=== PATIENT | male | born 1960 | race Caucasian/White ===

== ENCOUNTER 2017-05-22 13:37 | Emergency (ER) | payer OTHER ==
--- NOTE | 2017-05-22 13:54 | CPEKG ---
Heart Rate: 60 RR Interval: 1000 P-R Interval: 180 QRSD Interval: 96 QT Interval: 484 QTC Interval: 484 P Mclean: 37 QRS Mclean: 69 T Wave Mclean: 65 EKG Severity - ABNORMAL ECG - EKG Impression: SINUS RHYTHM EKG Impression: LEFT VENTRICULAR HYPERTROPHY EKG Impression: BORDERLINE INFERIOR Q WAVES EKG Impression: BORDERLINE PROLONGED QT INTERVAL Electronically Signed By: Rony Gutierrez 22-May-2017 15:49:32
[2017-05-22] MEDS ORDERED: NS 1,000 ML IV ONE (14:02)
--- NOTE | 2017-05-22 14:07 | EDPHY ---
H & P Time Seen by Provider: 05/22/17 13:38 HPI/ROS: HPI Fainted. 57-year-old male by private vehicle with his significant other. This patient comes from [place] by ambulance. He was in a hot bath tub with his . He was in the bathtub for a extended period of time. He got out of the bathtub and felt very lightheaded. He had 2 sit down on the floor. He tried to get up 2 times and was unable to do so because of this lightheadedness. He then had a brief episode of jerking of his head and chest and lost consciousness for about 30 sec. He then woke up. His who was at his side is a veterinary physician. He was alert and asked what happened. No postictal state. No associated headache, shortness of breath, chest pain, palpitations, loss of sensation or weakness in his extremities. He is feeling better now. He reports that for the last week he has had a bad upper respiratory infection with nasal congestion, cough, and loss of appetite. He reports that he has not been eating or drinking much over this period of time. He does take Viagra. He and his state that last Viagra use was over 24 hr ago. Other medication includes aspirin daily. ROS: Constitutional: No fever, no chills. As above. Eyes: No discharge. No changes in vision. ENT: No sore throat. As above. Respiratory: As above. No shortness of breath. Cardiac: No chest pain, no palpitations. Gastrointestinal: No abdominal pain, no vomiting, no diarrhea. Genitourinary: No hematuria. No dysuria or increased frequency with urination. Musculoskeletal: No back pain. No neck pain. No myalgias or arthralgias. Skin: No rashes. Neurological: No headache. No focal weakness or altered sensation. Past medical history: He denies any significant past medical history. Medications as above. Social history: Nonsmoker. Drinks alcohol socially. Here with his . Physical Exam: General Appearance: Alert, no distress. This patient is responding to questions appropriately and in full sentences. This patient appears well- hydrated and well-nourished. Eyes: Pupils equal and round no pallor or injection. No lid edema, erythema or injection. ENT, Mouth: Mucous membranes are moist. The pharyngeal tissues are unremarkable. No edema or swelling. No asymmetry suggestive of abscess. No erythema or exudates. No tongue lacerations or abrasions. Respiratory: There are no retractions, lungs are clear to auscultation with good air movement bilaterally. Cardiovascular: Regular rate and rhythm. No murmur. Gastrointestinal: Abdomen is soft and nontender, no masses, bowel sounds normal. No focal tenderness at McBurney's point. No Pete sign. Neurological: Motor sensory function is grossly intact. Cranial nerves are normal. Gait is normal. Skin: Warm and dry, no rashes. Musculoskeletal: Neck is supple and nontender. Extremities are symmetrical. All joints range without pain or impingement. Psychiatric: No agitation. No depression. Database: EKG: EKG time is 1:53 p.m.; EKG shows a narrow complex normal sinus rhythm with a ventricular rate of 60. Q-waves noted in the inferior leads. Left ventricular hypertrophy noted. The DE, QRS, QT intervals are within normal limits. There are no ST-T wave changes indicative of ischemic or injury pattern. No evidence of right heart strain. Interpreted by me. Imaging: Procedures: Emergency department course: IV established by EMS. He has received 1.5 L of fluid during transport by EMS. His vital signs were reviewed. Blood pressure is 114/80. security monitor shows a narrow complex sinus rhythm with a ventricular rate of 65. Pulse oximetry 95% on room air. The patient is afebrile. 2:50 p.m., patient re-evaluated. Resting comfortably at this time. Vital signs reviewed and are normal. Results of his EKG discussed. Concern about left ventricular hypertrophy discussed. I discussed the results of his blood work and elevated creatinine. He feels comfortable going home. I did discuss admission for observation. He declines this. His presentation is consistent with a vasovagal syncope. I will have him follow up with his primary care physician or our cardiology group for re-evaluation and to get an echocardiogram. He also has been instructed to follow up for repeat BUN and creatinine next week. He and his are in agreement with this plan. Return to emergency department precautions discussed. All their questions were answered. The patient was discharged in good condition. Differential Diagnosis: The differential diagnosis on this patient includes but is not limited to vasovagal syncope. Subarachnoid hemorrhage, pulmonary embolism, acute coronary syndrome, arrhythmia, seizure unlikely. This represents a partial list of diagnoses considered. These considerations are based on history, physical exam , past history, reassessment and diagnostic testing. Constitutional: Initial Vital Signs Temperature (C) 36.4 C 05/22/17 14:15 Heart Rate 63 05/22/17 14:15 Respiratory Rate 18 05/22/17 14:15 Blood Pressure 129/79 H 05/22/17 14:15 O2 Sat (%) 98 05/22/17 14:15 O2 Delivery Mode Room Air Allergies/Adverse Reactions: No Known Allergies Allergy (Unverified 05/22/17 14:15) Home Medications: Medication Instructions Recorded Aspirin 05/22/17 Viagra 05/22/17 Medical Decision Making - Data Points Laboratory Results: Laboratory Results 05/22/17 13:45 05/22/17 13:45 05/22/17 05/22/17 13:45 13:45 WBC 6.12 10^3/uL 10^3/uL (3.80-9.50) RBC 4.95 10^6/uL 10^6/uL (4.40-6.38) Hgb 15.2 g/dL g/dL (13.7-17.5) Hct 45.2 % % (40.0-51.0) MCV 91.3 fL fL (81.5-99.8) MCH 30.7 pg pg (27.9-34.1) MCHC 33.6 g/dL g/dL (32.4-36.7) RDW 12.5 % % (11.5-15.2) Plt Count 376 10^3/uL 10^3/uL (150-400) MPV 9.9 fL fL (8.7-11.7) Neut % (Auto) 51.8 % % (39.3-74.2) Lymph % (Auto) 33.8 % % (15.0-45.0) [place] % (Auto) 13.1 % H % (4.5-13.0) Eos % (Auto) 0.3 % L % (0.6-7.6) Baso % (Auto) 0.7 % % (0.3-1.7) Nucleat RBC Rel Count 0.0 % % (0.0-0.2) Absolute Neuts (auto) 3.17 10^3/uL 10^3/uL (1.70-6.50) Absolute Lymphs (auto) 2.07 10^3/uL 10^3/uL (1.00-3.00) Absolute Monos (auto) 0.80 10^3/uL 10^3/uL (0.30-0.80) Absolute Eos (auto) 0.02 10^3/uL L 10^3/uL (0.03-0.40) Absolute Basos (auto) 0.04 10^3/uL 10^3/uL (0.02-0.10) Absolute Nucleated RBC 0.00 10^3/uL 10^3/uL (0-0.01) Immature Gran % 0.3 % % (0.0-1.1) Immature Gran # 0.02 10^3/uL 10^3/uL (0.00-0.10) Sodium 143 mEq/L mEq/L (135-145) Potassium 4.5 mEq/L mEq/L (3.5-5.2) Chloride 100 mEq/L mEq/L (97-110) Carbon Dioxide 23 mEq/l mEq/l (22-31) Anion Gap 20 mEq/L H mEq/L (8-16) BUN 17 mg/dL mg/dL (7-23) Creatinine 1.4 mg/dL H mg/dL (0.7-1.3) Estimated GFR 52 Glucose 132 mg/dL H mg/dL (70-100) Calcium 10.0 mg/dL mg/dL (8.5-10.4) Medications Given: Discontinued Medications Sodium Chloride (Ns) 1,000 mls @ 0 mls/hr IV EDNOW ONE; Wide Open PRN Reason: Protocol Stop: 05/22/17 14:03 Last Admin: 05/22/17 14:10 Dose: 1,000 mls Departure - Departure Disposition: Home, Routine, Self-Care Clinical Impression: Syncope Condition: Good Instructions: Syncope (ED) Additional Instructions: Read and follow provided instructions. Follow-up with your primary care physician or our cardiology group early this week for re-evaluation and scheduling of an echocardiogram to evaluate your heart function. As discussed. Your EKG indicates left ventricular hypertrophy. You should also have your kidney function rechecked by your primary care physician within the next week to 10 days. Do not take medications like Viagra which can lower your blood pressure prior to taking a hot bath or using a hot tub. Keep well hydrated. Return to the emergency department for chest pain, shortness of breath, headache , difficulty breathing, lightheadedness, fainting or other serious concerns. Referrals: Patient,NotPresent [Unknown] - As per Instructions Alex Sánchez MD [Medical Doctor] - As per Instructions
[2017-05-22 14:21] LABS: PLATELET COUNT 376 10^3/uL (150-400)
[2017-05-22 14:43] VITALS: PULSE 67; O2SAT 96
[2017-05-22 15:23] VITALS: BP 130/79; RESP 15; TEMP 97.9
== END 2017-05-22 15:23 | disposition home or self-care (01) ==
DX: R55 Syncope and collapse (principal); E86.9 Volume depletion, unspecified; Z79.82 Long term (current) use of aspirin